=== PATIENT | male | born 1985 | race Caucasian/White ===

== ENCOUNTER 2019-01-28 11:53 | Emergency (ER) | payer MEDICAID ==
[2019-01-28] MEDS ORDERED: Sodium Chloride 0.9% 1000 ML 1,000 ML IV STA (12:41)
[2019-01-28] MEDS ORDERED: Zofran 4 MG/2 ML VIAL IV ONE (12:41)
[2019-01-28] MEDS ORDERED: MORPHINE SULFATE 4 MG INJ IV ONE (12:41)
--- NOTE | 2019-01-28 12:54 | ERPHSYRPT ---
- History of Present Illness Time Seen by Provider: 01/28/19 12:31 Historian: patient Exam Limitations: no limitations Patient Subjective Stated Complaint: Pt c/o of RLQ pain below the abdomen and medial upper abdominal pain, dry heaving, diarrhea, for approx the past 3 days, paracentisis approx once a week, edema to right lower leg Triage Nursing Assessment: Pt walked into the ER, vitals wnl, skin cold and pale , very thin, edema to right lower leg, rates pain 8/10, pulses normal, bowel sounds heard in all 4 Physician History: 33 years old male with history of chronic pancreatitis status post partial pancreatectomy/splenectomy/GT placement, ascites needing paracentesis in the past presented in the ER with 3 days history of multiple episodes of nonprojectile, nonbilious vomiting but no hematemesis. He is also having multiple episodes of lose watery diarrhea but no hematochezia. Patient reports moderate generalized abdominal pain associated with abdominal distention and pressure/tightness pushing in his chest from his belly. He reports a paracentesis done couple of weeks ago. Denies any fever or chills. Timing/Duration: day(s) (3) Activities at Onset: rest Quality: fullness, pressure, sharpness Abdominal Pain Onset Location: generalized abdomen Pain Radiation: no radiation Severity of Pain-Max: moderate Severity of Pain-Current: moderate Modifying Factors: Improves With: breathing, movement, palpation Associated Symptoms: diarrhea, fatigue, heartburn, nausea, vomiting Previous symptoms: same symptoms as today Allergies/Adverse Reactions: No Known Drug Allergies Allergy (Verified 01/28/19 11:59) Home Medications: Diphenoxylate HCl/Atropine [Lomotil 2.5-0.025 mg Tablet] 1 tab PO BID 01/28/19 [ History] Famotidine 20 mg [Pepcid 20 MG] 20 mg PO DAILY PRN 01/28/19 [History] Lansoprazole [Prevacid] 15 mg PO DAILY 01/28/19 [History] Lipase/Protease/Amylase [Rachelon Dr 24,000 Units Capsule] 3 each PO AC 01/28/19 [ History] Potassium Chloride 10 Meq Tab* [Klor Con 10 MEQ] 20 meq PO DAILY 01/28/19 [ History] - Past Medical History Pertinent Past Medical History: Yes Cardiac History: Hypertension Respiratory History: Asthma Musculoskeletal History: Fractures GI Medical History: Colitis, Pancreatitis Psycho-Social History: Anxiety Other Medical History: anemia - Past Surgical History Past Surgical History: Yes Gastrointestinal: Pancreatic Surgery Other Surgical History: paricentisis, splenectomy - Social History Smoking Status: Former smoker How long have you smoked: 10 years Exposure to second hand smoke: No Drug Use: none Patient Lives Alone: No - Nursing Vital Signs Nursing Vital Signs: Initial Vital Signs Temperature 97.9 F 01/28/19 12:04 Pulse Rate 98 H 01/28/19 12:04 Blood Pressure 122/83 01/28/19 12:04 O2 Sat by Pulse Oximetry 99 01/28/19 12:04 Pain Scale Pain Intensity 4 - Physical Exam General Appearance: no apparent distress, cachetic Eye Exam: eyes nml inspection Ears, Nose, Throat Exam: normal ENT inspection, pharynx normal Neck Exam: normal inspection, non-tender, supple Respiratory Exam: normal breath sounds, lungs clear, No respiratory distress Cardiovascular Exam: regular rate/rhythm, normal heart sounds Gastrointestinal/Abdomen Exam: tenderness (generalized), distention, guarding, other (G-tube well in place. Marked distention with positive fluid thrill. Distant bowel sounds.) Back Exam: normal inspection Extremity Exam: normal inspection, normal range of motion Neurologic Exam: alert, oriented x 3, cooperative Skin Exam: normal color SpO2 Interpretation: normal SpO2: 99 O2 Delivery: Room Air - Course Nursing assessment & vital signs reviewed: Yes Ordered Tests: Active Orders 24 hr Category Date Time Status IV Insertion STAT Care 01/28/19 12:41 Active ABDOMEN AND PELVIS W CONTRAST [CT] Stat Exams 01/28/19 13:47 Completed AMYLASE Stat Lab 01/28/19 13:12 Completed BLOOD CULTURE Stat Lab 01/28/19 14:53 Received CBC W DIFF Stat Lab 01/28/19 13:12 Completed CMP Stat Lab 01/28/19 13:12 Completed LIPASE Stat Lab 01/28/19 13:12 Completed Lactic Acid Stat Lab 01/28/19 12:56 Completed Medication Summary Discontinued Medications Generic Name Dose Route Start Last Admin Trade Name Freq PRN Reason Stop Dose Admin Sodium Chloride 1,000 mls @ 499 mls/hr 01/28/19 12:41 01/28/19 15:41 Sodium Chloride 0.9% 1000 Ml IV 01/28/19 14:41 Infused .Q2H1M STA Infusion Sodium Chloride Confirm 01/28/19 13:27 Sodium Chloride 0.9% 1000 Ml Administered 01/28/19 13:28 Dose 1,000 mls @ ud .ROUTE .STK-MED ONE Piperacillin Sod/Tazobactam Sod 3.375 gm in 100 mls @ 200 mls/hr 01/28/19 14: 34 01/28/19 15:41 Zosyn 3.375gm/100 Ml D5w IV 01/28/19 15:03 Infused STAT STA Infusion Piperacillin Sod/Tazobactam Sod Confirm 01/28/19 14:49 Zosyn 3.375gm/100 Ml D5w Administered 01/28/19 14:50 Dose 3.375 gm in 100 mls @ ud IV .STK-MED ONE Morphine Sulfate 4 mg 01/28/19 12:41 01/28/19 13:29 Morphine Sulfate 4 Mg Inj IV 01/28/19 12:42 4 mg STAT ONE Administration Morphine Sulfate Confirm 01/28/19 13:27 Morphine Sulfate 4 Mg Inj Administered 01/28/19 13:28 Dose 4 mg .ROUTE .STK-MED ONE Ondansetron HCl 4 mg 01/28/19 12:41 01/28/19 13:29 Zofran 4 Mg/2 Ml Vial IV 01/28/19 12:42 4 mg STAT ONE Administration Ondansetron HCl Confirm 01/28/19 13:26 Zofran 4 Mg/2 Ml Vial Administered 01/28/19 13:27 Dose 4 mg .ROUTE .STK-MED ONE Lab/Rad Data: Laboratory Result Diagrams 01/28/19 13:12 01/28/19 13:12 Laboratory Results 01/28/19 01/28/19 01/28/19 Range/Units 13:12 13:12 12:56 WBC 13.2 H (4.0-10.5) K/mm3 RBC 3.33 L (4.1-5.6) M/mm3 Hgb 10.2 L (12.5-18.0) gm/dl Hct 31.1 L (42-50) % MCV 93.4 (78-100) fl MCH 30.6 (26-32) pg MCHC 32.8 (32-36) g/dl RDW 18.5 H (11.5-14.0) % Plt Count 716 H (150-450) K/mm3 MPV 10.1 H (6-9.5) fl Gran % 59.2 (36.0-66.0) % Eos # (Auto) 0.29 (0-0.5) Absolute Lymphs (auto) 3.34 (1.0-4.6) Absolute Monos (auto) 1.67 H (0.0-1.3) Lymphocytes % 25.3 (24.0-44.0) % Monocytes % 12.7 H (0.0-12.0) % Eosinophils % 2.2 (0.00-5.0) % Basophils % 0.6 (0.0-0.4) % Absolute Granulocytes 7.82 H (1.4-6.9) Basophils # 0.08 (0-0.4) Sodium 139 (137-145) mmol/L Potassium 4.6 (3.5-5.1) mmol/L Chloride 109 H (98-107) mmol/L Carbon Dioxide 26 (22-30) mmol/L Anion Gap 8.7 (5-15) MEQ/L BUN 8 L (9-20) mg/dL Creatinine 0.37 L (0.66-1.25) mg/dL Estimated GFR > 60.0 ML/MIN Glucose 109 H (74-106) mg/dL Lactic Acid 1.2 (0.4-2.0) Calcium 8.5 (8.4-10.2) mg/dL Total Bilirubin 1.20 (0.2-1.3) mg/dL AST 40 (17-59) U/L ALT 10 (0-50) U/L Alkaline Phosphatase 294 H (38-126) U/L Serum Total Protein 6.2 L (6.3-8.2) g/dL Albumin 2.2 L (3.5-5.0) g/dL Amylase 32 (30-110) U/L Lipase < 10 L (23-300) U/L Slides for Path Review YES - Progress Progress: improved, pain not gone completely, re-examined Progress Note: 33 years old is well her abdominal pain/distention with vomiting and diarrhea with feeling dehydrated and fatigued. Is given a small bolus of fluid and Zofran along with morphine, and evaluation feeling better. Is a white count of 13,, not in acute renal failure. CT abdomen and pelvis with contrast showed massive ascites and colitis, started on Zosyn. I believe patient needs further evaluation by GI and needs paracentesis. Discussed with Dr. Sun and patient is accepted for transfer to [facility] as he needs higher level of care. 01/28/19 15:14 Counseled pt/family regarding: lab results, diagnosis (is a), need for follow-up , rad results - Departure Departure Disposition: Transfer Clinical Impression: Infectious colitis, Gastroenteritis Ascites Qualifiers: Ascites type: other type Qualified Code(s): R18.8 - Other ascites Condition: Fair Critical Care Time: No Referrals: KATY DALAL MD [Primary Care Provider] -
[2019-01-28 13:14] LABS: Absolute Neutrophil Ct (ANC) 7.82 (1.4-6.9); BASOPHIL % 0.6 % (0.0-0.4); Basophil (Absolute #) 0.08 (0-0.4); Eosinophil % 2.2 % (0.00-5.0); Eosinophil (Absolute #) 0.29 (0-0.5); Hematocrit 31.1 % (42-50); Hemoglobin 10.2 gm/dl (12.5-18.0); Lymphocyte (Absolute #) 3.34 (1.0-4.6); Lymphocytes % 25.3 % (24.0-44.0); Mean Cell Volume 93.4 fl (78-100); Mean Corpuscular Hemoglobin 30.6 pg (26-32); Mean Corpuscular Hgb Concent. 32.8 g/dl (32-36); Mean Platelet Volume 10.1 fl (6-9.5); Monocyte (Absolute #) 1.67 (0.0-1.3); Monocytes % 12.7 % (0.0-12.0); Neutrophil % 59.2 % (36.0-66.0); Platelet Count 716 K/mm3 (150-450); Red Blood Count 3.33 M/mm3 (4.1-5.6); Red Cell Distribution Width 18.5 % (11.5-14.0); White Blood Count 13.2 K/mm3 (4.0-10.5)
[2019-01-28] MEDS ORDERED: Zofran 4 MG/2 ML VIAL ONE (13:26)
[2019-01-28] MEDS ORDERED: MORPHINE SULFATE 4 MG INJ ONE (13:27)
[2019-01-28] MEDS ORDERED: Sodium Chloride 0.9% 1000 ML 1,000 ML ONE (13:27)
[2019-01-28 13:28] LABS: ALBUMIN 2.2 g/dL (3.5-5.0); ALKALINE PHOSPHATASE 294 U/L (38-126); AMYLASE 32 U/L (30-110); ANION GAP 8.7 MEQ/L (5-15); BLOOD UREA NITROGEN 8 mg/dL (9-20); CHLORIDE 109 mmol/L (98-107); Calcium 8.5 mg/dL (8.4-10.2); Carbon Dioxide 26 mmol/L (22-30); Creatinine 1 0.37 mg/dL (0.66-1.25); Glucose 109 mg/dL (74-106); LIPASE < 10 U/L (23-300); Potassium 4.6 mmol/L (3.5-5.1); SGOT/AST 40 U/L (17-59); SGPT/ALT 10 U/L (0-50); SODIUM 139 mmol/L (137-145); Total Protein 6.2 g/dL (6.3-8.2)
--- NOTE | 2019-01-28 14:31 | XRAY ---
Indication: Chronic pancreatitis with partial pancreatectomy and total splenectomy. Acute colitis. Diarrhea. No appetite. Retaining fluids. Multiple contiguous axial images obtained through the abdomen and pelvis using 80 cc Isovue 370 contrast only. Comparison: None Lung bases demonstrates moderate bibasilar effusions with mild compressive atelectasis. Heart is not enlarged. There is massive abdomen/pelvic ascites. No free air. PEG tube balloon tip is in the gastric lumen. Noncontrasted stomach and bowel loops appear nonobstructed. Mild fluid distended ascending, transverse, and lesser degree descending colon with circumferential wall thickening favoring clinical reported colitis. Pancreatic body/tail surgically absent with pancreatic head unremarkable. Also total splenectomy. Remaining liver, gallbladder, adrenal glands, kidneys, ureters, bladder, and aorta appear unremarkable. No pathologic retroperitoneal lymphadenopathy. Osseous structures intact. Impression: 1. Moderate bibasilar effusions without cardiomegaly. 2. Massive abdomen/pelvis ascites. 3. Mild fluid distended colon with wall thickening favoring clinically reported colitis. 4. Total splenectomy, partial pancreatectomy, and PEG tube in situ. CT DI 6.70
[2019-01-28] MEDS ORDERED: Zosyn 3.375GM/100 Ml D5W 3.375 GM/100 ML IVPB IV STA (14:34)
[2019-01-28 14:47] LABS: Slide Review 1 YES
[2019-01-28] MEDS ORDERED: Zosyn 3.375GM/100 Ml D5W 3.375 GM/100 ML IVPB IV ONE (14:49)
[2019-01-28 15:19] VITALS: BP 125/82; PULSE 101
[2019-01-28 21:01] VITALS: O2SAT 99
== END 2019-01-28 15:41 | disposition short-term general hospital (02) ==
LOC: ED 11:53
DX: R18.8 Other ascites (principal); A09 Infectious gastroenteritis and colitis, unspecified; K52.9 Noninfective gastroenteritis and colitis, unspecified; R10.31 Right lower quadrant pain; R19.7 Diarrhea, unspecified; K86.1 Other chronic pancreatitis; R10.10 Upper abdominal pain, unspecified; Z79.899 Other long term (current) drug therapy; I10 Essential (primary) hypertension
CPT/HCPCS: 36415; 74177; 80053; 82150; 83605; 83690; 85025; 87040; 96360; 96361; 96365; 96374; 96375; 99285; J2270; J2405; J2543